=== PATIENT | male | born 1990 | race Caucasian/White ===

== ENCOUNTER 2017-01-30 15:04 | Emergency (ER) | payer OTHER ==
[2017-01-30 17:32] LABS: BASOPHIL 0.1 % (0-2); EOSINOPHIL 0.6 % (0-5); HCT 46.1 % (42.0-52.0); HGB 15.8 g/dl (13.2-18.0); LYMPHOCYTE 6.1 % (15-48); MCH 29.4 pg (25.0-31.0); MCHC 34.3 g/dL (32.0-36.0); MCV 85.8 fL (78.0-100.0); MONOCYTE 6.5 % (0-12); MPV 11.1 fL (6.0-9.5); NEUTROPHIL 86.7 % (41-80); PLT 218 K/uL (150-400); RBC 5.37 M/uL (4.70-6.00); RDW 12.9 % (11.5-14.0); WBC 15.7 K/uL (4.0-10.5)
[2017-01-30 17:46] LABS: BILIRUBIN - TOTAL 0.5 mg/dL (0.1-1.0); CREATININE 1.1 mg/dL (0.7-1.2); GLOBULIN (CALCULATION) 2.6 g/dL (2.2-4.2); POTASSIUM 4.6 mmol/L (3.5-5.1); TOTAL PROTEIN 7.6 g/dL (6.4-8.3)
== END 2017-01-30 17:38 | disposition home or self-care (01) ==
LOC: FER 15:04
PROVIDERS: Emergency Medicine
DX: T40.601A Poisoning by unspecified narcotics, accidental (unintentional), initial encounter (principal); F17.200 Nicotine dependence, unspecified, uncomplicated
CPT/HCPCS: 36415; 80053; 85025; 93005